=== PATIENT | female | born 1985 | race African-American/Black ===

== ENCOUNTER 2016-11-27 14:42 | Emergency (ER) | payer MEDICAID | END 2016-11-27 14:51 | disposition left against medical advice (07) | LOC: ER 14:42 | DX: N93.9 Abnormal uterine and vaginal bleeding, unspecified (principal); Z53.21 Procedure and treatment not carried out due to patient leaving prior to being seen by health care provider ==

== ENCOUNTER 2017-01-18 13:39 | Emergency (ER) | payer MEDICAID ==
[~2017-01-18] VITALS: Ht 167.6 cm; Wt 72.6 kg
[2017-01-18 14:02] VITALS: BP 129/93
[2017-01-18 14:23] LABS: Basophils # (auto) 0 uL; Basophils % (auto) 0.4 % (0.0-2.0); Eosinophils # (auto) 0.1 uL; Eosinophils % (auto) 0.6 % (0.0-7.0); Hematocrit 44.3 % (36.0-46.0); Hemoglobin 14.6 g/dL (12.2-16.2); Lymphocytes # (auto) 3.2 uL; Lymphocytes % (auto) 29.7 % (10.0-50.0); Mean Corpuscular Hemoglobin 32.2 pg (28.0-32.0); Mean Corpuscular Volume 97.7 fL (80.0-100.0); Mean Platelet Volume 8.1 fL (7.4-10.4); Monocytes # (auto) 0.9 uL; Neutrophils # (auto) 6.7 uL; Neutrophils % (auto) 61.3 % (37.0-80.0); Platelet Count (auto) 292 10^3/uL (140-450); Red Cell Distribution Width 14.6 % (11.6-16.0); White Blood Cell 10.9 10^3/uL (4.4-10.8)
[2017-01-18 14:49] LABS: Albumin 3.7 g/dL (3.4-5.0); BUN/Creatinine Ratio 9.3; Bilirubin, Total 0.4 mg/dL (0.2-1.0); Calcium 8.5 mg/dL (8.5-10.1); Potassium 3.1 mmol/L (3.5-5.1); Total Protein 7.9 g/dL (6.4-8.2)
[2017-01-18 14:54] LABS: Urine Bilirubin Negative (Negative); Urine Color Yellow (Yellow); Urine Glucose Normal (Normal); Urine Ketone Negative (Negative); Urine Mucus FEW (None Seen); Urine RBC 7 /hpf (0 - 4); Urine Squamous Epithelial Cell FEW /hpf (<5); Urine Urobilinogen Normal (Negative)
[2017-01-18 14:56] LABS: Urine Blood 3+ /uL (Negative); Urine Nitrite POSITIVE (Negative)
== END 2017-01-18 20:00 | disposition left against medical advice (07) ==
LOC: ER 13:41
DX: R11.2 Nausea with vomiting, unspecified (principal); M54.5 Low back pain; R10.9 Unspecified abdominal pain; R51 Headache; Z53.21 Procedure and treatment not carried out due to patient leaving prior to being seen by health care provider
CPT/HCPCS: 36415; 80053; 81001; 85025

== ENCOUNTER 2017-06-09 02:30 | Emergency (ER) | payer MEDICAID ==
[~2017-06-09] VITALS: Ht 167.6 cm; Wt 68.0 kg
[2017-06-09 03:40] VITALS: BP 132/70
[2017-06-09] MEDS ORDERED: ONDANSETRON ODT 4 MG TAB PO ONE (03:45)
[2017-06-09] MEDS ORDERED: traMADol HCL 50 MG TAB PO ONE (04:00)
== END 2017-06-09 04:15 | disposition home or self-care (01) ==
LOC: ER 02:30
DX: S00.83XA Contusion of other part of head, initial encounter (principal); F10.10 Alcohol abuse, uncomplicated; R11.2 Nausea with vomiting, unspecified; W20.8XXA Other cause of strike by thrown, projected or falling object, initial encounter; Y93.89 Activity, other specified; Y99.8 Other external cause status; Y92.89 Other specified places as the place of occurrence of the external cause
CPT/HCPCS: 70450; 72125; 99284; Q0162

== ENCOUNTER 2019-05-25 14:49 | Emergency (ER) | payer MEDICAID ==
[~2019-05-25] VITALS: Ht 167.6 cm; Wt 81.6 kg
[2019-05-25 16:22] VITALS: BP 121/78
[2019-05-25] MEDS ORDERED: KETOROLAC TROMETH 60MG/2ML VIAL IM ONE (18:00)
[2019-05-25] MEDS ORDERED: METHOCARBAMOL 500 MG TAB PO ONE (18:00)
== END 2019-05-25 18:21 | disposition home or self-care (01) ==
LOC: ER 14:49
DX: M54.5 Low back pain (principal)
CPT/HCPCS: 96372; 99283; J1885

== ENCOUNTER 2020-04-11 20:04 | Emergency (ER) | payer MEDICAID ==
[~2020-04-11] VITALS: Ht 167.6 cm; Wt 81.6 kg
[2020-04-11] MEDS ORDERED: PROMETHAZINE HCL 25 MG/ML 1ML IV ONE (22:00)
[2020-04-11] MEDS ORDERED: SODIUM CHLORIDE 0.9% 1,000 ML IV ONE (22:00)
[2020-04-11 22:08] LABS: Urine Bacteria FEW /hpf (None Seen); Urine Blood Negative /uL (Negative); Urine Mucus FEW (None Seen); Urine Specific Gravity 1.028 (1.001-1.035); Urine WBC 4 /hpf (0 - 5)
[2020-04-11 22:09] LABS: Basophils # (auto) 0.2 10 ^3/uL (0-0.2); Eosinophils # (auto) 0.1 10 ^3/uL (0-0.8); Eosinophils % (auto) 0.8 % (0.0-7.0); Lymphocytes # (auto) 3.8 10 ^3/uL (0.4-5.4); Nucleated Red Blood Cells % 0.1 %
[2020-04-11 22:11] LABS: Basophils % (auto) 1.1 % (0.0-2.0); Hematocrit 35.1 % (36.0-46.0); Hemoglobin 11.3 g/dL (12.2-16.2); Lymphocytes % (auto) 24.4 % (10.0-50.0); Mean Corpuscular Hemoglobin 25.7 pg (28.0-32.0); Mean Corpuscular Hgb Conc. 32.1 g/dL (32.0-36.0); Monocytes # (auto) 1.2 10 ^3/uL (0-1.3); Monocytes % (auto) 7.4 % (0.0-12.0); Neutrophils # (auto) 10.4 10 ^3/uL (1.6-8.6); Neutrophils % (auto) 66.3 % (37.0-80.0); Platelet Count (auto) 336 10^3/uL (140-450); Red Blood Cells 4.38 10^6/uL (4.0-5.20); Red Cell Distribution Width 17.2 % (11.8-14.3); White Blood Cell 15.6 10^3/uL (4.4-10.8)
[2020-04-11 22:20] LABS: Alcohol, Urine < 3.0 mg/dL (0-10); Amphetamine Screen, Urine NEGATIVE (NEGATIVE); Barbiturate Scree,Urine NEGATIVE (NEGATIVE); Benzodiazephine Screen, Urine NEGATIVE (NEGATIVE); Cannabinoid Screen, Urine NEGATIVE (NEGATIVE); Cocaine Screen, Urine NEGATIVE (NEGATIVE); Opiate Scree,Urine NEGATIVE (NEGATIVE); Phencyclidine Screen, Urine NEGATIVE (NEGATIVE)
[2020-04-11 22:28] LABS: Albumin 3.7 g/dL (3.4-5.0); Calcium 9.1 mg/dL (8.5-10.1); Potassium 3.3 mmol/L (3.5-5.1)
[2020-04-11 22:31] LABS: BUN/Creatinine Ratio 7.9; Bilirubin, Total 0.3 mg/dL (0.2-1.0); Total Protein 7.6 g/dL (6.4-8.2)
[2020-04-11] MEDS ORDERED: cefTRIAXone 1GM/50ML D5W 50 ML IV ONE (23:15)
[2020-04-11] MEDS ORDERED: POTASSIUM CHL 20 Meq TABLET PO ONE (23:15)
[2020-04-12 01:20] VITALS: BP 122/88
== END 2020-04-12 01:18 | disposition home or self-care (01) ==
LOC: ER 20:04
DX: O23.41 Unspecified infection of urinary tract in pregnancy, first trimester (principal); O21.8 Other vomiting complicating pregnancy; Z3A.01 Less than 8 weeks gestation of pregnancy
CPT/HCPCS: 36415; 76801; 76817; 80053; 80307; 81001; 84702; 85025; 96361; 96365; 96375; 99284; J0696; J2550

== ENCOUNTER 2020-05-30 13:06 | Emergency (ER) | payer MEDICAID ==
[~2020-05-30] VITALS: Ht 167.6 cm; Wt 81.6 kg
[2020-05-30 13:11] VITALS: BP 129/79
[2020-05-30 13:30] LABS: Urine Bacteria MANY /hpf (None Seen); Urine Blood Negative /uL (Negative); Urine Hyaline Cast FEW /lpf (0 - 2); Urine Mucus FEW (None Seen); Urine Specific Gravity 1.015 (1.001-1.035); Urine WBC 25 /hpf (0 - 5)
[2020-05-30 14:14] LABS: Basophils # (auto) 0.1 10 ^3/uL (0-0.2); Eosinophils # (auto) 0.1 10 ^3/uL (0-0.8); Eosinophils % (auto) 0.9 % (0.0-7.0); Hematocrit 37.1 % (36.0-46.0); Hemoglobin 11.9 g/dL (12.2-16.2); Lymphocytes # (auto) 2.9 10 ^3/uL (0.4-5.4); Lymphocytes % (auto) 21.3 % (10.0-50.0); Mean Corpuscular Hemoglobin 27.6 pg (28.0-32.0); Mean Corpuscular Hgb Conc. 32.1 g/dL (32.0-36.0); Mean Corpuscular Volume 86.2 fL (80.0-100.0); Monocytes % (auto) 7.6 % (0.0-12.0); Neutrophils # (auto) 9.3 10 ^3/uL (1.6-8.6); Neutrophils % (auto) 69.2 % (37.0-80.0); Nucleated Red Blood Cells % 0.2 %; Platelet Count (auto) 259 10^3/uL (140-450); Red Cell Distribution Width 20.4 % (11.8-14.3); White Blood Cell 13.4 10^3/uL (4.4-10.8)
[2020-05-30] MEDS ORDERED: LIDOCAINE 1% HCL (LOCAL ANESTH.) INJ 20ML MDV ONE (14:45)
[2020-05-30] MEDS ORDERED: ACETAMINOPHEN 500 MG TAB PO ONE (14:45)
[2020-05-30] MEDS ORDERED: cefTRIAXone SOD 1,000 MG VL IM ONE (14:45)
== END 2020-05-30 15:42 | disposition home or self-care (01) ==
LOC: ER 13:06
DX: O23.41 Unspecified infection of urinary tract in pregnancy, first trimester (principal); Z3A.12 12 weeks gestation of pregnancy
CPT/HCPCS: 36415; 76801; 81001; 84702; 85025; 96372; 99284; J0696; J2001

== ENCOUNTER 2021-06-24 09:11 | Emergency (ER) | payer MEDICAID ==
[~2021-06-24] VITALS: Ht 167.6 cm; Wt 86.2 kg
[2021-06-24 09:50] VITALS: BP 113/88
[2021-06-24] MEDS ORDERED: IBUPROFEN 800 MG TAB PO ONE (10:30)
== END 2021-06-24 10:58 | disposition home or self-care (01) ==
LOC: ER 09:11
DX: S90.112A Contusion of left great toe without damage to nail, initial encounter (principal); W22.8XXA Striking against or struck by other objects, initial encounter; Y93.89 Activity, other specified; Y92.89 Other specified places as the place of occurrence of the external cause; Y99.8 Other external cause status
CPT/HCPCS: 73660

== ENCOUNTER → 2021-08-27 | Emergency (ER) | payer MEDICAID ==
[~2021-08-27] VITALS: Ht 167.6 cm; Wt 81.6 kg
[2021-08-27 16:31] VITALS: BP 139/90
== END | disposition left against medical advice (07) ==
LOC: ER 16:08
DX: R51.9 Headache, unspecified (principal); Z53.21 Procedure and treatment not carried out due to patient leaving prior to being seen by health care provider

== ENCOUNTER 2022-05-16 20:35 | Emergency (ER) | payer MEDICAID ==
[~2022-05-16] VITALS: Ht 167.6 cm; Wt 81.5 kg
[2022-05-16 22:32] LABS: Urine Bacteria FEW /hpf (None Seen); Urine Blood Negative /uL (Negative); Urine Mucus FEW (None Seen); Urine Specific Gravity 1.026 (1.001-1.035); Urine WBC 4 /hpf (0 - 5)
[2022-05-16 23:07] LABS: Basophils # (auto) 0 10 ^3/uL (0-0.2); Basophils % (auto) 0.2 % (0.0-2.0); Eosinophils # (auto) 0.1 10 ^3/uL (0-0.8); Eosinophils % (auto) 1.1 % (0.0-7.0); Hematocrit 41.3 % (36.0-46.0); Hemoglobin 13.4 g/dL (12.2-16.2); Lymphocytes # (auto) 3.9 10 ^3/uL (0.4-5.4); Lymphocytes % (auto) 29.7 % (10.0-50.0); Mean Corpuscular Hemoglobin 28.6 pg (28.0-32.0); Mean Corpuscular Hgb Conc. 32.4 g/dL (32.0-36.0); Mean Corpuscular Volume 88.3 fL (80.0-100.0); Monocytes # (auto) 0.8 10 ^3/uL (0-1.3); Monocytes % (auto) 6.5 % (0.0-12.0); Neutrophils # (auto) 8.1 10 ^3/uL (1.6-8.6); Neutrophils % (auto) 62.5 % (37.0-80.0); Nucleated Red Blood Cells % 0.1 %; Red Blood Cells 4.68 10^6/uL (4.0-5.20); Red Cell Distribution Width 13.5 % (11.8-14.3)
[2022-05-16 23:24] LABS: Albumin 3.8 g/dL (3.4-5.0); Calcium 8.8 mg/dL (8.5-10.1); Potassium 3.9 mmol/L (3.5-5.1)
[2022-05-16 23:28] LABS: BUN/Creatinine Ratio 10.7; Bilirubin, Total 0.8 mg/dL (0.2-1.0); Total Protein 7.5 g/dL (6.4-8.2)
[2022-05-17] MEDS ORDERED: NITR-87 PO (03:35)
[2022-05-17] MEDS ORDERED: cefTRIAXone SOD 1,000 MG VL IM ONE (03:45)
[2022-05-17 04:00] VITALS: BP 113/76
== END 2022-05-17 04:46 | disposition home or self-care (01) ==
LOC: ER 20:39
DX: R10.13 Epigastric pain (principal); R11.0 Nausea
CPT/HCPCS: 36415; 74176; 80053; 81001; 83690; 85025; 96372; 99284; J0696

== ENCOUNTER 2023-02-19 22:21 | Emergency (ER) | payer MEDICAID ==
[~2023-02-19] VITALS: Ht 167.6 cm; Wt 81.6 kg
[~2023-02-19 22:21] MED LIST: NITR-87 PO
[2023-02-19] MEDS ORDERED: ONDANSETRON ODT 4 MG TAB PO ONE (23:00)
[2023-02-19] MEDS ORDERED: IBUPROFEN 800 MG TAB PO ONE (23:00)
[2023-02-20 00:32] VITALS: BP 133/78
[2023-02-20] MEDS ORDERED: METHOCARBAMOL 500 MG TAB PO ONE (01:00)
[2023-02-20] MEDS ORDERED: DICL1GEL73 TD (01:32)
[2023-02-20] MEDS ORDERED: IBUP-1456 PO (01:32)
[2023-02-20] MEDS ORDERED: METH-1181 PO (01:32)
== END 2023-02-20 01:45 | disposition home or self-care (01) ==
LOC: ER 22:21
DX: S13.4XXA Sprain of ligaments of cervical spine, initial encounter (principal); S29.012A Strain of muscle and tendon of back wall of thorax, initial encounter; S46.912A Strain of unspecified muscle, fascia and tendon at shoulder and upper arm level, left arm, initial encounter; R51.9 Headache, unspecified; V89.2XXA Person injured in unspecified motor-vehicle accident, traffic, initial encounter; Y93.89 Activity, other specified; Y92.89 Other specified places as the place of occurrence of the external cause; Y99.8 Other external cause status
CPT/HCPCS: 70450; 72080; 72125; 73030; 99284; Q0162

== ENCOUNTER 2023-05-05 15:57 | Emergency (ER) | payer MEDICAID ==
[~2023-05-05] VITALS: Ht 167.6 cm; Wt 86.6 kg
[~2023-05-05 15:57] MED LIST changes: +DICL1GEL73 TD; +IBUP-1456 PO; +METH-1181 PO
[2023-05-05] MEDS ORDERED: ACETAMINOPHEN 500 MG TAB PO ONE (16:15)
[2023-05-05 16:29] LABS: Urine Bacteria MANY /hpf (None Seen); Urine Blood 1+ /uL (Negative); Urine Clarity HAZY (Clear); Urine Color Yellow (Yellow); Urine Mucus FEW (None Seen); Urine Protein, UAD 1+ (Negative); Urine Specific Gravity 1.025 (1.001-1.035); Urine Urobilinogen Normal (Negative); Urine WBC 15 /hpf (0 - 5)
[2023-05-05 16:34] LABS: Hemoglobin 11.9 g/dL (12.2-16.2); Mean Corpuscular Hemoglobin 26.2 pg (28.0-32.0); Mean Corpuscular Hgb Conc. 32.3 g/dL (32.0-36.0); Mean Corpuscular Volume 81.3 fL (80.0-100.0); Red Blood Cells 4.55 10^6/uL (4.0-5.20); Red Cell Distribution Width 16.8 % (11.8-14.3); White Blood Cell 7.1 10^3/uL (4.4-10.8)
[2023-05-05 16:39] LABS: Basophils % (manual) 0 (0.0-2.0); Blast Cells 0; Metamyelocytes % 0; Myelocytes % 0; Promyelocytes % 0; Reactive Lymphocytes 0
[2023-05-05 16:46] LABS: Albumin 3.4 g/dL (3.4-5.0); Calcium 8.8 mg/dL (8.5-10.1); Potassium 3.3 mmol/L (3.5-5.1)
[2023-05-05 16:49] LABS: BUN/Creatinine Ratio 7.4 (10.0-20.0); Bilirubin, Total 0.2 mg/dL (0.2-1.0); Total Protein 7.6 g/dL (6.4-8.2)
[2023-05-05 17:04] LABS: Band Neutrophils % (manual) 3; Eosinophils % (manual) 1 (0-7); Lymphocytes % (manual) 12 (10.0-50.0); Monocytes % (manual) 14 (0-12)
[2023-05-05 17:05] LABS: Anisocytosis Slight; Platelet Estimate Adequate
[2023-05-05 18:21] LABS: COVID19 ANTIGEN SOFIA FIA NEGATIVE (NEGATIVE); Rapid Influenza A Negative (Negative); Rapid Influenza B Negative (Negative)
[2023-05-05] MEDS ORDERED: IBUP-1455 PO (19:00)
[2023-05-05] MEDS ORDERED: ACET500T58 PO (19:00)
[2023-05-05] MEDS ORDERED: NITR-87 PO (19:00)
[2023-05-05] MEDS ORDERED: ZOFR4T PO (19:00)
[2023-05-05 19:58] VITALS: BP 106/78; PULSE 97; RESP 17; TEMP 99.1; O2SAT 99
== END 2023-05-05 19:59 | disposition home or self-care (01) ==
LOC: ER 15:57
DX: B33.8 Other specified viral diseases (principal); N39.0 Urinary tract infection, site not specified; Z20.822 Contact with and (suspected) exposure to COVID-19
CPT/HCPCS: 36415; 80053; 81001; 83690; 85007; 85027; 87426; 87804

== ENCOUNTER 2024-02-26 10:53 | Inpatient (IN) | payer MEDICAID ==
[~2024-02-26] VITALS: Ht 167.6 cm; Wt 102.6 kg
[~2024-02-26 10:53] MED LIST changes: +ACET500T58 PO; +IBUP-1455 PO; +ZOFR4T PO
[2024-02-26 11:15] LABS: Basophils # (auto) 0.1 10 ^3/uL (0-0.2); Basophils % (auto) 0.8 % (0.0-2.0); Eosinophils # (auto) 0.2 10 ^3/uL (0-0.8); Eosinophils % (auto) 1.5 % (0.0-7.0); Hemoglobin 13.2 g/dL (12.2-16.2); Lymphocytes # (auto) 3.3 10 ^3/uL (0.4-5.4); Lymphocytes % (auto) 32.1 % (10.0-50.0); Mean Corpuscular Hgb Conc. 33.1 g/dL (32.0-36.0); Mean Corpuscular Volume 84.5 fL (80.0-100.0); Monocytes % (auto) 9.9 % (0.0-12.0); Neutrophils # (auto) 5.8 10 ^3/uL (1.6-8.6); Neutrophils % (auto) 55.7 % (37.0-80.0); Nucleated Red Blood Cells % 0.1 %; Red Blood Cells 4.73 10^6/uL (4.0-5.20); Red Cell Distribution Width 15.6 % (11.8-14.3); White Blood Cell 10.3 10^3/uL (4.4-10.8)
[2024-02-26 11:41] LABS: Alanine Aminotransferase 14 U/L (7-40); Alkaline Phosphatase 83 U/L (46-116); Anion Gap 7 (5-15); Aspartate Aminotransferase 8 U/L (13-40); BUN/Creatinine Ratio 7.7 (10.0-20.0); Bilirubin, Total 0.3 mg/dL (0.2-1.0); Blood Urea Nitrogen 7 mg/dL (9-23); Calcium 9.5 mg/dL (8.5-10.1); Carbon Dioxide 23 mmol/L (20-30); Chloride 111 mmol/L (98-107); Glucose 93 mg/dL (74-106); Potassium 3.4 mmol/L (3.5-5.1); Sodium 141 mmol/L (136-145)
[2024-02-26 11:42] LABS: Total Protein 6.9 g/dL (5.7-8.2)
[2024-02-26 11:42] LABS: Urine Bacteria FEW /hpf (None Seen); Urine Blood Negative /uL (Negative); Urine Clarity Turbid (Clear); Urine Color Light-Yellow (Yellow); Urine Protein, UAD Negative (Negative); Urine Specific Gravity 1.025 (1.001-1.035); Urine Urobilinogen Normal (Negative); Urine WBC 5 /hpf (0 - 5)
[2024-02-26] MEDS ORDERED: NITR-87 PO (12:04)
[2024-02-26] MEDS: ASPirin 325 MG TAB PO ONE (12:22)
[2024-02-26] MEDS: LORazepam 0.5 MG TAB PO ONE (12:23)
[2024-02-26 12:24] VITALS: RESP 18; O2SAT 98
[2024-02-26] MEDS: IOHEXOL 350 MG/ML 100ML IJ ONE (14:01)
[2024-02-26] MEDS: SODIUM CHLORIDE 0.9% 1,000 ML IV ONE (14:09)
[2024-02-26] MEDS ORDERED: NITROGLYCERIN 0.4 MG SL TAB SL PRN (14:15)
[2024-02-26 14:28] LABS: Amphetamine Screen, Urine Neg (NEGATIVE); Barbiturate Scree,Urine Neg (NEGATIVE); Benzodiazephine Screen, Urine Neg (NEGATIVE); Cocaine Screen, Urine Neg (NEGATIVE); Opiate Scree,Urine Neg (NEGATIVE)
[2024-02-26 14:29] LABS: Cannabinoid Screen, Urine Neg (NEGATIVE); Phencyclidine Screen, Urine Neg (NEGATIVE)
[2024-02-26] MEDS: SODIUM CHLORIDE 0.9% 1,000 ML IV SCH (14:42)
[2024-02-26] MEDS: cefTRIAXone 1GM/50ML D5W 50 ML IV ONE (14:46)
[2024-02-26] MEDS: MORPHINE SULFATE INJ 2 MG/ml SYRG IV PRN (18:48)
[2024-02-26 19:25] VITALS: PULSE 77; RESP 13; O2SAT 100
[2024-02-26] MEDS: METOPROLOL TARTRATE 25 MG TAB PO SCH (21:48)
[2024-02-26 23:00] VITALS: BP 126/79; PULSE 69; RESP 17; TEMP 98.3; O2SAT 100
[2024-02-27] VITALS (9 sets, daily range): BP systolic 86–121; BP diastolic 50–81; PULSE 68–95; RESP 16–18; TEMP 97.9–98.9; O2SAT 95–100
[2024-02-27] MEDS ORDERED: MEDR150I23 IM (00:27)
[2024-02-27] MEDS ORDERED: IBUP-1453 PO (00:27)
[2024-02-27] MEDS: cefTRIAXone 1GM/50ML D5W 50 ML IV SCH (09:23)
[2024-02-27] MEDS: ACETAMINOPHEN 325 MG TAB PO PRN (18:11)
[2024-02-28] VITALS (8 sets, daily range): BP systolic 93–127; BP diastolic 40–83; PULSE 72–98; RESP 14–18; TEMP 98–98.4; O2SAT 96–100
[2024-02-28] MEDS ORDERED: TRAZ-227 PO (07:40)
[2024-02-28] MEDS ORDERED: PROP1TAB53 PO (17:51)
[2024-02-28] MEDS: PROPRANOLOL HCL 20 MG TAB PO ONE (18:28)
[2024-02-28 19:42] LABS: Basophils # (auto) 0.1 10 ^3/uL (0-0.2); Basophils % (auto) 0.6 % (0.0-2.0); Eosinophils # (auto) 0.3 10 ^3/uL (0-0.8); Hematocrit 41.1 % (36.0-46.0); Hemoglobin 13.3 g/dL (12.2-16.2); Lymphocytes # (auto) 4.6 10 ^3/uL (0.4-5.4); Lymphocytes % (auto) 35.7 % (10.0-50.0); Mean Corpuscular Hemoglobin 27.5 pg (28.0-32.0); Mean Corpuscular Hgb Conc. 32.4 g/dL (32.0-36.0); Mean Corpuscular Volume 85.1 fL (80.0-100.0); Monocytes # (auto) 1.4 10 ^3/uL (0-1.3); Monocytes % (auto) 11.1 % (0.0-12.0); Neutrophils # (auto) 6.5 10 ^3/uL (1.6-8.6); Neutrophils % (auto) 50.6 % (37.0-80.0); Nucleated Red Blood Cells % 0.1 %; Red Blood Cells 4.84 10^6/uL (4.0-5.20); Red Cell Distribution Width 15.9 % (11.8-14.3); White Blood Cell 12.9 10^3/uL (4.4-10.8)
[2024-02-28 20:02] LABS: Alanine Aminotransferase 14 U/L (7-40); Albumin 4.1 g/dL (3.2-4.8); Alkaline Phosphatase 99 U/L (46-116); Anion Gap 10 (5-15); Aspartate Aminotransferase 12 U/L (13-40); BUN/Creatinine Ratio 8.2 (10.0-20.0); Blood Urea Nitrogen 8 mg/dL (9-23); Calcium 9.7 mg/dL (8.5-10.1); Carbon Dioxide 22 mmol/L (20-30); Chloride 109 mmol/L (98-107); Glucose 71 mg/dL (74-106); Magnesium 1.9 mg/dL (1.6-2.6); Potassium 3.3 mmol/L (3.5-5.1); Sodium 141 mmol/L (136-145)
[2024-02-28 20:03] LABS: Bilirubin, Total 0.2 mg/dL (0.2-1.0); Total Protein 7.1 g/dL (5.7-8.2)
[2024-02-28] MEDS ORDERED: PROPRANOLOL HCL 20 MG TAB PO SCH (22:00)
[2024-02-29 01:00] VITALS: BP_SYST 113; BP_SYST 121; BP_SYST 98; BP_DIAS 48; BP_DIAS 74; BP_DIAS 84; PULSE 71; PULSE 80; PULSE 99; RESP 14; RESP 16; TEMP 99.1; O2SAT 100
[2024-02-29 05:00] VITALS: BP_SYST 104; BP_SYST 110; BP_DIAS 65; BP_DIAS 71; PULSE 67; PULSE 86; PULSE 87; RESP 14; RESP 16; TEMP 98.2; O2SAT 98; O2SAT 99
[2024-02-29 08:00] VITALS: PULSE 70; PULSE 77; RESP 16; O2SAT 99
[2024-02-29 09:00] VITALS: BP 106/72; PULSE 77; RESP 16; TEMP 97.3; O2SAT 98
[2024-02-29 09:01] VITALS: BP 114/71; PULSE 70; RESP 16; O2SAT 99
[2024-02-29 09:02] VITALS: BP 106/76; PULSE 96; RESP 16; O2SAT 100
[2024-02-29] MEDS: PROPRANOLOL HCL 20 MG TAB PO SCH (09:17)
[2024-02-29] MEDS: POTASSIUM EFFERVESENT TAB 25 MEQ PO ONE (09:59)
== END 2024-02-29 10:55 | disposition home or self-care (01) | DRG 463 ==
LOC: ER 10:58 → TELE 14:06 → TELE-WESTW 23:00
PROVIDERS: ADMIT Hospitalist; ATTEND Hospitalist
DX: N30.00 Acute cystitis without hematuria (principal); E66.9 Obesity, unspecified; I34.1 Nonrheumatic mitral (valve) prolapse; I10 Essential (primary) hypertension; Z82.49 Family history of ischemic heart disease and other diseases of the circulatory system; Z68.36 Body mass index [BMI] 36.0-36.9, adult
CPT/HCPCS: 36415; 70450; 71045; 71275; 80053; 80307; 81001; 83735; 84439; 84443; 84484; 84702; 85025; 85379; 93005; 93306; 97163; G0378